=== PATIENT | female | born 1980 | race Caucasian/White ===

== ENCOUNTER 2023-04-04 15:39 | Emergency (ER) | payer OTHER, MEDICAID, SELFPAY ==
[2023-04-04 15:51] VITALS: BP 116/79; PULSE 85; RESP 16; TEMP 37.1; O2SAT 99; BMI 20.1
[2023-04-04 18:13] VITALS: BP 111/59; PULSE 76; RESP 18; O2SAT 96
--- NOTE | 2023-04-05 11:01 | ED_ITS ---
HPI - Headache <Robert Hernandez PA-C - Last Filed: 04/05/23 11:13> General Chief Complaint: Headache Stated Complaint: bump on head, headache Time Seen by Provider: 04/04/23 17:41 Mode of arrival: Ambulatory History of Present Illness HPI Narrative: 42-year-old female presents to the ED with a tender cyst-like bump on the scalp. Patient states that she has had a small bump for a long time, was diagnosed as a likely cyst. Patient states that in the last couple of days, the bump has grown in size and feels tender to touch, especially when she is brushing her hair. Patient says that the cyst did not appear to be painful prior to this. Patient denies fever, chills, nausea, vomiting. Patient also complains of a headache and some photophobia. No trauma. No changes in vision. Related Data Allergies Allergy/AdvReac Type Severity Reaction Status Date / Time methocarbamol Allergy Verified 04/04/23 15:58 Review of Systems <Robert Hernandez PA-C - Last Filed: 04/05/23 11:13> Constitutional Constitutional: Denies chills, Denies fatigue, Denies fever(s), Denies frequent falls, Denies lethargy and Denies weakness Eyes Eyes: Denies change in vision, Denies eye discharge, Denies irritation and Denies loss of vision ENT Ears, Nose, Mouth, and Throat: Denies change in voice, Denies dizziness, Denies neck pain, Denies sore throat and Denies throat swelling Cardiovascular Cardiovascular: Denies chest pain, Denies irregular heart rhythm, Denies lightheadedness, Denies palpitations, Denies dyspnea, Denies dyspnea on exertion and Denies orthopnea Respiratory Respiratory: Denies cough, Denies dyspnea, Denies dyspnea on exertion and Denies wheezing Gastrointestinal Gastrointestinal: Denies abdominal pain, Denies change in bowel habits, Denies diarrhea, Denies nausea and Denies vomiting Musculoskeletal Musculoskeletal: Denies neck pain and Denies numbness Integumentary/Breasts Skin/Breast: Denies pruritus, Denies erythema, Denies rash and Denies wounds Comments: Tender bump on scalp Neurologic Neurologic: Denies behavioral changes, Denies confusion, Denies dizziness, Denies frequent falls, Denies loss of vision, Denies numbness and Denies weakness Psychiatric Psychiatric: Denies anxiety, Denies behavioral changes, Denies confusion, Denies depression, Denies homicidal ideation and Denies suicidal ideation Endocrine Endocrine: Denies fatigue, Denies flushing and Denies palpitations Hematologic/Lymphatic Hematologic/Lymphatic: Denies easy bruising Allergic/Immunologic Allergic/Immunologic: Denies urticaria, Denies throat swelling and Denies wheezing Patient History <Robert Hernandez PA-C - Last Filed: 04/05/23 11:13> Social History Smoking Status: Current every day smoker Smoking Status: Current every day smoker tobacco type: vaping Substance Use Type: does not use Exam <Robert Hernandez PA-C - Last Filed: 04/05/23 11:13> Narrative Exam Narrative: Const General:?cooperative, healthy appearing and comfortable HENIL Head:?normal to inspection Ears:?hearing grossly normal bilaterally Nose:?external nose normal Face and sinus:?normal facial exam and sinuses nontender Mouth:?oral mucosae normal Throat:?posterior oropharynx normal Eyes General:?appearance normal, both eyes and all related structures Neck Neck:?normal visual inspection and no lymphadenopathy noted Resp Effort & Inspection:?normal respiratory effort Auscultation:?clear to auscultation bilaterally Cardio Rate:?regular rate Rhythm:?regular rhythm Integumentary There is a bump that feels somewhat indurated and fluctuant on the scalp. Tender to palpation. No discharge noted. No overlying erythema. Neuro General:?patient alert, patient awake and patient oriented x3 Initial Vital Signs Initial Vital Signs: Vital Signs Temperature 98.8 F 04/04/23 15:51 Pulse Rate 85 04/04/23 15:51 Respiratory Rate 16 04/04/23 15:51 Blood Pressure 116/79 04/04/23 15:51 Pulse Oximetry 99 04/04/23 15:51 Oxygen Delivery Method Room Air 04/04/23 15:51 <Ratna Rosenberg DO - Last Filed: 04/11/23 07:10> Initial Vital Signs Initial Vital Signs: Vital Signs Temperature 98.8 F 04/04/23 15:51 Pulse Rate 85 04/04/23 15:51 Respiratory Rate 16 04/04/23 15:51 Blood Pressure 116/79 04/04/23 15:51 Pulse Oximetry 99 02/12/24 15:51 Oxygen Delivery Method Room Air 04/04/23 15:51 MDM - Headache <Robert Hernandez PA-C - Last Filed: 04/05/23 11:13> [facility] Narrative Medical decision making narrative: 42-year-old female presents to the ED with a tender cyst-like bump on the scalp. Physical exam most consistent with abscess versus sebaceous cyst versus other. An 18 gauge needle was used to de roof the most fluctuant area, resulting in a small amount of blood and a significant amount of yellowish, cottage cheese like material. These findings are most consistent with a sebaceous cyst. Discussed findings with patient. Recommend follow-up with plastic design applier if the cyst reoccurs. Patient's headache consistent with a primary headache, no red flag symptoms associated with it. Recommend supportive care with Tylenol and ibuprofen, plenty of hydration. ED return precautions were discussed with patient. Patient verbalized understanding. Medical records reviewed: Yes Discharge Plan Departure Patient Disposition: Home Clinical Impression: Cyst Instructions: DI for Epidermal Cyst Activity Restrictions/Additional Instructions: You were evaluated in the ED today for a cyst on your scalp. We used a little needle to puncture the skin and express some pus, fat, skin cells that were causing the cyst to become painful. It is possible that the cyst might recur, in which case please follow-up with a plastic design applier for further evaluation. Return to the ED if you have worsening symptoms, fever, chills. Referrals: Carlos Rice MD [Primary Care Provider] - Stand Alone Forms: Patient Portal/API ED Sign-out <Ratna Rosenberg DO - Last Filed: 04/11/23 07:10> Cosign ED Attending Ada Attestation: I was immediately available in the department for consultation.
== END 2023-04-04 18:10 | disposition home or self-care (01) ==
PROVIDERS: Emergency Provider Student in an Organized Health Care Education/Training Program; PCP Family Medicine
DX: L72.0 Epidermal cyst (principal)
CPT/HCPCS: 99281

== ENCOUNTER 2023-07-24 22:39 | Emergency (ER) | payer OTHER, MEDICAID, SELFPAY ==
[2023-07-24 23:00] VITALS: BP 123/72; PULSE 79; RESP 17; TEMP 37.1; O2SAT 98; BMI 20.1
--- NOTE | 2023-07-24 23:04 | ED.GENADULT ---
HPI - General Adult General Chief complaint: Urogenital-Female Stated complaint: post hysterectomy bleeding Time Seen by Provider: 07/24/23 22:50 Source: patient Mode of arrival: Ambulatory History of Present Illness HPI narrative: Patient is a 42-year-old female. One month ago underwent a hysterectomy where there was removal of her uterus and cervix. She stated that postoperatively things have been going very well. She would actually followed up with her plant and maintenance technician provider. States that earlier today she started to have vaginal bleeding. It was after she got in the shower. There has been no trauma. No change in her activity. She denies pain. No fevers. No urinary symptoms. No change in bowel habits. She contact in the office of her plant and maintenance technician who advised that she come in to be evaluated. Related Data Allergies Allergy/AdvReac Type Severity Reaction Status Date / Time methocarbamol Allergy Verified 04/04/23 15:58 Review of Systems Constitutional Constitutional: Reports system reviewed and no additional complaints, except as documented Gastrointestinal Gastrointestinal: Reports system reviewed and no additional complaints, except as documented Genitourinary Genitourinary: Reports system reviewed and no additional complaints, except as documented Integumentary/Breasts Skin/Breast: Reports system reviewed and no additional complaints, except as documented Hematologic/Lymphatic On Anticoagulants: No Patient History Social History Smoking Status: Current some day smoker Smoking Status: Current some day smoker tobacco type: vaping Substance Use Type: does not use Exam Initial Vital Signs Initial Vital Signs: Vital Signs Temperature 98.7 F 07/24/23 23:00 Pulse Rate 79 07/24/23 23:00 Respiratory Rate 17 07/24/23 23:00 Blood Pressure 123/72 07/24/23 23:00 Pulse Oximetry 98 07/24/23 23:00 Oxygen Delivery Method Room Air 07/24/23 23:00 Const General: cooperative, comfortable and No ill appearing HENMA Head: normal to inspection and normocephalic GI Inspection: normal to inspection and non-distended Palpation: soft Other: With nurse Betty in the room a pelvic exam was performed. There was blood in the vaginal vault. The suture line where the cervix once was is intact. There was no signs of dehiscence. There was a small amount of clot in the vagina. There was no signs of trauma. No lacerations. It did appear that there was a very slight amount of oozing from the suture line. Skin General: no rashes or lesions noted Course Orders Ordered: ED Orders 07/24/23 22:53 Urine Microscopic Stat 07/24/23 23:28 CT abdomen pelvis w con Stat 07/24/23 23:45 Basic Metabolic Panel Stat Complete Blood Count AUTO DIFF Stat Vital Signs Vital signs: Vital Signs - 8 hr 07/24/23 23:00 Temperature 98.7 F Pulse Rate 79 Respiratory Rate 17 Blood Pressure 123/72 Pulse Oximetry 98 Oxygen Delivery Method Room Air Medical Decision Making Lab Data Lab results reviewed: Yes I reviewed the patient's lab results. 07/24/23 23:45 07/24/23 23:45 Labs: Lab Results 07/24/23 07/24/23 Range/Units 22:53 23:45 WBC 5.4 (4.5-11.0) X10^3/uL RBC 4.46 (4.0-5.2) X10^6/uL Hgb 12.2 (12.0-16.0) g/dL Hct 35.6 L (36-46) % MCV 79.8 L (80-100) fL MCH 27.3 (26-34) PG MCHC 34.2 (30-36) % RDW 13.1 (11.6-14.8) % Plt Count 212 (150-400) X10^3/uL Neut % (Auto) 56.1 (50-75) % Lymph % (Auto) 24.9 L (25-40) % [place] % (Auto) 9.9 (3-14) % Eos % (Auto) 7.9 H (2-4) % Baso % (Auto) 1.2 (0-2) % Neut # (Auto) 3000 (9332-2791) /uL Lymph # (Auto) 1300 (5653-8731) /uL [place] # (Auto) 500 (0-900) /uL Eos # (Auto) 400 (0-450) /uL Baso # (Auto) 100 (0-100) /uL Sodium 137 (137-145) mmol/L Potassium 4.3 (3.4-5.1) mmol/L Chloride 104 (98-107) mmol/L Carbon Dioxide 27 (22-32) mmol/L BUN 13 (7-17) mg/dL Creatinine 0.71 (0.52-1.04) mg/dL Estimated GFR > 60 (>60) mL/min BUN/Creatinine Ratio 18.3 (6-22) Glucose 99 (70-100) mg/dL Calcium 9.2 (8.4-10.2) mg/dL Urine RBC >100/hpf H (0-5/HPF) Urine WBC None seen (0-5/HPF) Ur Squamous Epith Cells 0-1 /hpf (0-5/HPF) Urine Bacteria None seen (None) Ur Culture Indicated? Cult not indicated Vol Urine Centrifuged 10ml (spun) Point of Care Testing Test Results Negative Urine Dip Bedside Urine Glucose Negative Bedside Urine Bilirubin - Negative Bedside Urine Ketone - Negative Urine Specific [place] 1.015 Bedside Urine Occult Blood +++ Bedside Urine pH 6.0 Bedside Urine Protein - Negative Bedside Urine Urobilinogen - Negative Bedside Urine Nitrite - Negative Bedside Urine Leukocytes +/- 15 Esterase Point of care testing: Point of Care Testing Test Results Negative Urine Dip Bedside Urine Glucose Negative Bedside Urine Bilirubin - Negative Bedside Urine Ketone - Negative Urine Specific [place] 1.015 Bedside Urine Occult Blood +++ Bedside Urine pH 6.0 Bedside Urine Protein - Negative Bedside Urine Urobilinogen - Negative Bedside Urine Nitrite - Negative Bedside Urine Leukocytes +/- [address] scan - abdomen/pelvis: Radiologist's Impression: PROCEDURE: CT ABDOMEN PELVIS W CON INDICATIONS: vaginal bleeding after hysterectomy TECHNIQUE: After the administration of intravenous contrast, axial sections acquired from the lung bases to the pubic symphysis. Coronal and sagittal reformats were performed. For radiation dose reduction, the following was used: automated exposure control, adjustment of mA and/or kV according to patient size. COMPARISON: [facility], US, US PELVIC COMPLETE WITH TRANSVAGINAL, 04/20/2023, 12:51. FINDINGS: Image quality: Diagnostic. Lower Chest: No significant findings. ABDOMEN: Liver: No solid mass. Gallbladder: No radiopaque gallstones or wall thickening. Biliary ducts: No biliary dilation. Pancreas: No ductal dilation. Spleen: Size is within normal limits. Adrenal Glands: No adrenal nodules. Kidneys and Ureters: No hydronephrosis. No solid mass. No complex renal cystic lesion which requires follow up. Hypoattenuating lesion in the interpolar region of the left kidney is too small to characterize. Stomach and Bowel: Moderate colonic stool. Normal retrocecal appendix. Small bowel loops and stomach are unremarkable. Peritoneum: No abnormal intraperitoneal fluid. No free air. Ventral Wall: Small fat containing periumbilical hernia. Abdominal Nodes: No retroperitoneal or mesenteric adenopathy by size criteria. Vessels: Aorta and inferior vena cava are normal in size. PELVIS: Pelvic Organs: Status post hysterectomy. Enhancing left ovarian follicle is noted. Right adnexal 3.2 cm cyst. Trace free fluid is seen in the pelvis. Bladder: No bladder wall thickening, accounting for underdistention. Pelvic Nodes: No enlarged lymph nodes. Miscellaneous: No inguinal hernias are seen. Bones: No aggressive osseous abnormality. IMPRESSION: 1. Status post hysterectomy. No significant abnormality is seen at the vaginal cuff. 2. Right ovarian 3.2 cm cyst. A peripherally enhancing left ovarian cyst is most likely physiologic. MDM Narrative Medical decision making narrative: The patient is bleeding from the vagina and it does appear to be coming from the suture line although he was a very small amount. I suspect that the bleeding she is having is from the accumulation of the blood in the vaginal vault. Her vital signs are unremarkable. Labs unremarkable. CT scan unremarkable. Was no signs of this is an infection. No signs of specific trauma. She has no pain. I did discuss the case with on-call plant and maintenance technician [facility]. This was not the provider who did her surgery. He recommended the CT scan and if things were stable he can follow-up as an outpatient. He was going to send a message to her plant and maintenance technician provider. I feel that followed up as an outpatient is not unreasonable given the amount of bleeding that she is having. We do acknowledge this is unusual given the fact that it has been a month since her surgery however she does have a relatively benign exam today. The patient was given specific return precautions. She was okay with going home and contacting her plant and maintenance technician doctor for follow-up. Discharge Plan Departure Patient Disposition: Home Clinical Impression: Postoperative haemorrhage of vagina Activity Restrictions/Additional Instructions: I do recommend that tomorrow you contact your OBGYN office for a follow-up. You can expect some potential bleeding over the next couple days that you may need to wear a pad. If you start to bleed through multiple pads an hour for multiple hours in a row were start getting lightheaded or having fevers or pain please return to the emergency department for further evaluation. Referrals: Carlos Rice MD [Primary Care Provider] - Stand Alone Forms: Patient Portal/API
--- NOTE | 2023-07-24 23:28 | DI.CT.S_ITS ---
PROCEDURE: CT ABDOMEN PELVIS W CON INDICATIONS: vaginal bleeding after hysterectomy TECHNIQUE: After the administration of intravenous contrast, axial sections acquired from the lung bases to the pubic symphysis. Coronal and sagittal reformats were performed. For radiation dose reduction, the following was used: automated exposure control, adjustment of mA and/or kV according to patient size. COMPARISON: [facility], US, US PELVIC COMPLETE WITH TRANSVAGINAL, 04/20/2023, 12:51. FINDINGS: Image quality: Diagnostic. Lower Chest: No significant findings. ABDOMEN: Liver: No solid mass. Gallbladder: No radiopaque gallstones or wall thickening. Biliary ducts: No biliary dilation. Pancreas: No ductal dilation. Spleen: Size is within normal limits. Adrenal Glands: No adrenal nodules. Kidneys and Ureters: No hydronephrosis. No solid mass. No complex renal cystic lesion which requires follow up. Hypoattenuating lesion in the interpolar region of the left kidney is too small to characterize. Stomach and Bowel: Moderate colonic stool. Normal retrocecal appendix. Small bowel loops and stomach are unremarkable. Peritoneum: No abnormal intraperitoneal fluid. No free air. Ventral Wall: Small fat containing periumbilical hernia. Abdominal Nodes: No retroperitoneal or mesenteric adenopathy by size criteria. Vessels: Aorta and inferior vena cava are normal in size. PELVIS: Pelvic Organs: Status post hysterectomy. Enhancing left ovarian follicle is noted. Right adnexal 3.2 cm cyst. Trace free fluid is seen in the pelvis. Bladder: No bladder wall thickening, accounting for underdistention. Pelvic Nodes: No enlarged lymph nodes. Miscellaneous: No inguinal hernias are seen. Bones: No aggressive osseous abnormality. IMPRESSION: 1. Status post hysterectomy. No significant abnormality is seen at the vaginal cuff. 2. Right ovarian 3.2 cm cyst. A peripherally enhancing left ovarian cyst is most likely physiologic. Approved by: Jayy Becker M.D. on 07/25/2023 at 0:36
[2023-07-24 23:36] LABS: Bacteria Urine None Seen; Culture Indicated Urine Cult Not Indicated; RBC Urine >100/HPF (0-5/HPF); Squamous Epithelial Cell Urine 0-1 /HPF (0-5/HPF); Urine Volume 10mL (spun); WBC Urine None Seen (0-5/HPF)
[2023-07-24 23:54] LABS: Add Manual Diff / Slide Review NO; Basophils Absolute Auto 100 /uL (0-100); Basophils Percent Auto 1.2 % (0-2); Eosinophils Absolute Auto 400 /uL (0-450); Eosinophils Percent Auto 7.9 % (2-4); Hematocrit 35.6 % (36-46); Hemoglobin 12.2 g/dL (12.0-16.0); Lymphocytes Absolute Auto 1300 /uL (1100-4500); Lymphocytes Percent Auto 24.9 % (25-40); Mean Corpuscular HGB Conc 34.2 % (30-36); Mean Corpuscular Hemoglobin 27.3 PG (26-34); Mean Corpuscular Volume 79.8 fL (80-100); Monocytes Absolute Auto 500 /uL (0-900); Monocytes Percent Auto 9.9 % (3-14); Neutrophils Absolute Auto 3000 /uL (1500-7000); Neutrophils Percent Auto 56.1 % (50-75); Platelet Count 212 X10^3/uL (150-400); Red Blood Cell Count 4.46 X10^6/uL (4.0-5.2); Red Cell Distribution Width 13.1 % (11.6-14.8); White Blood Cell Count 5.4 X10^3/uL (4.5-11.0)
[2023-07-25 00:03] LABS: BUN Creatinine Ratio 18.3 (6-22); Blood Urea Nitrogen 13 mg/dL (7-17); Calcium 9.2 mg/dL (8.4-10.2); Carbon Dioxide 27 mmol/L (22-32); Chloride 104 mmol/L (98-107); Estimated Glomerular Filt Rate > 60 mL/min (>60); Glucose 99 mg/dL (70-100); HEMOLYSIS < 15 (0-50); Potassium 4.3 mmol/L (3.4-5.1); Sodium 137 mmol/L (137-145)
[2023-07-25 00:57] VITALS: BP 100/58; PULSE 69; RESP 16; O2SAT 95
== END 2023-07-25 01:00 | disposition home or self-care (01) ==
PROVIDERS: Emergency Provider Emergency Medicine; PCP Family Medicine
DX: N99.820 Postprocedural hemorrhage of a genitourinary system organ or structure following a genitourinary system procedure (principal)
CPT/HCPCS: 36415; 74177; 80048; 81003; 81015; 81025; 85025; 99283; 99284; Q9967